=== PATIENT | male | born 1960 | race Caucasian/White ===

== ENCOUNTER 2022-06-26 22:59 | Emergency (ER) | payer MEDICARE, OTHER ==
[~2022-06-26] VITALS: Ht 182.9 cm; Wt 65.9 kg
[2022-06-26 23:59] LABS: EOSINOPHILS % (AUTO) 0.2 % (0-6); HEMOGLOBIN 14.6 g/dl (14.0-17.9); MEAN PLATELET VOLUME 7.8 FL (7.4-10.4)
[2022-06-27 00:02] LABS: BASOPHILS % (AUTO) 0.4 % (0-1); HEMATOCRIT 44.2 % (42.0-52.0); LYMPHOCYTES % (AUTO) 10.9 % (21-51); MEAN CORPUSCULAR HEMOGLOBIN 33.2 PG (27.0-31.0); MEAN CORPUSCULAR VOLUME 100.8 FL (78-98); MONOCYTES # (AUTO) 1.5 X10'3 (0-0.9); MONOCYTES % (AUTO) 15.5 % (2-12); PLATELET COUNT 243 X10'3 (140-440); RED BLOOD COUNT 4.39 X10'6 (4.70-6.10); RED CELL DISTRIBUTION WIDTH 15.8 % (11.5-14.5); WHITE BLOOD COUNT 9.6 X10'3 (4.5-11.0)
[2022-06-27 00:03] LABS: ALANINE AMINOTRANSFERASE 25 U/L (12-78); ALBUMIN 3.6 G/DL (3.4-5.0); ALBUMIN/GLOBULIN RATIO 0.9 (1.1-1.5); ALKALINE PHOSPHATASE 96 IU/L (46-116); ANION GAP 11 (8-16); ASPARTATE AMINO TRANSFERASE 26 U/L (10-37); BILIRUBIN,TOTAL 0.6 MG/DL (0.1-1.0); BLOOD UREA NITROGEN 19 MG/DL (7-18); BUN/CREATININE RATIO 13.3 (5.4-32.0); CALCIUM 9.2 MG/DL (8.5-10.1); CHLORIDE 99 MMOL/L (99-107); CREATININE 1.43 MG/DL (0.60-1.10); GLUCOSE 120 MG/DL (70-104); POTASSIUM 4.4 MMOL/L (3.5-5.1); SODIUM 134 MMOL/L (135-145); TOTAL PROTEIN 7.4 G/DL (6.4-8.2); eGFR 50 ML/MIN
[2022-06-27 00:27] LABS: LIPASE 5670 U/L (73-393)
[2022-06-27] MEDS ORDERED: normal saline 1000ML IV soln IVB ONE (05:20)
[2022-06-27] MEDS ORDERED: morphine 4 MG/ML inj SYRINge IV ONE (05:20)
[2022-06-27] MEDS ORDERED: ondansetron/PF 4mg/2ml inj IV ONE (05:20)
[2022-06-27] MEDS ORDERED: OXYC-658 PO (06:17)
[2022-06-27] MEDS ORDERED: ONDA4TAB12 PO (06:17)
[2022-06-27 06:49] VITALS: BP 168/109
== END 2022-06-27 06:58 | disposition home or self-care (01) ==
LOC: ER 23:00
DX: K85.20 Alcohol induced acute pancreatitis without necrosis or infection (principal); Z79.899 Other long term (current) drug therapy
CPT/HCPCS: 80053; 83690; 84484; 85025; 96361; 96374; 96375; 99284; J2270; J2405; J7030

== ENCOUNTER 2022-07-21 16:27 | Emergency (ER) | payer MEDICARE, OTHER ==
[~2022-07-21 16:27] MED LIST: ONDA4TAB12 PO; OXYC-658 PO
== END 2022-07-21 18:41 | disposition left against medical advice (07) ==
LOC: ER 16:27
DX: K85.90 Acute pancreatitis without necrosis or infection, unspecified (principal); Z53.21 Procedure and treatment not carried out due to patient leaving prior to being seen by health care provider

== ENCOUNTER 2022-08-01 10:55 | Emergency (ER) | payer MEDICARE, OTHER ==
[~2022-08-01] VITALS: Ht 182.9 cm; Wt 65.9 kg
[~2022-08-01 10:55] MED LIST changes: -OXYC-658 PO
[2022-08-01] MEDS ORDERED: ketorolac trometh. 30mg/ml inj. IV ONE (11:35)
[2022-08-01] MEDS ORDERED: famotidine/PF 10 mg/ml inj IV ONE (11:35)
[2022-08-01] MEDS ORDERED: ondansetron/PF 4mg/2ml inj IV ONE (11:35)
[2022-08-01] MEDS ORDERED: morphine 4 MG/ML inj SYRINge IV PRN (11:52)
[2022-08-01 12:02] LABS: CLARITY,URINE SLIGHTLY CLOUDY (Clear); COLOR,URINE YELLOW (Yellow); GLUCOSE, URINE NEGATIVE (Neg); KETONES,URINE TRACE mg/dl (Neg); LEUKOCYTE ESTERASE ,URINE NEGATIVE (Neg); NITRITES, URINE NEGATIVE (Neg); OCCULT BLOOD,URINE TRACE-INTACT (Neg); PROTEIN,URINE TRACE mg/dl (Neg); UA COLLECTION TYPE STRAIGHT CATH; UROBILINOGEN,URINE 0.2 E.U/dL (0.2-1.0)
[2022-08-01 12:04] LABS: BASOPHILS # (AUTO) 0.1 X10'3 (0-0.2); BASOPHILS % (AUTO) 0.4 % (0-1); EOSINOPHILS % (AUTO) 0.3 % (0-6); HEMATOCRIT 40.3 % (42.0-52.0); HEMOGLOBIN 12.9 g/dl (14.0-17.9); LYMPHOCYTES # (AUTO) 1.4 X10'3 (1.1-4.8); LYMPHOCYTES % (AUTO) 9.5 % (21-51); MEAN CORPUSCULAR HEMOGLOBIN 31.8 PG (27.0-31.0); MEAN CORPUSCULAR HGB CONC 32.1 g/dL (33.0-36.5); MEAN PLATELET VOLUME 7.7 FL (7.4-10.4); MONOCYTES # (AUTO) 1.1 X10'3 (0-0.9); MONOCYTES % (AUTO) 7.7 % (2-12); NEUTROPHILS # (AUTO) 12.1 X10'3 (1.8-7.7); NEUTROPHILS % (AUTO) 82.1 % (42-75); PLATELET COUNT 440 X10'3 (140-440); RED BLOOD COUNT 4.07 X10'6 (4.70-6.10); RED CELL DISTRIBUTION WIDTH 16.2 % (11.5-14.5); WHITE BLOOD COUNT 14.8 X10'3 (4.5-11.0)
[2022-08-01 12:10] LABS: FINE GRANULAR CAST 0-3 /LPF (NEGATIVE); SQUAMOUS EPITHELIAL CELL,UR FEW /LPF (FEW)
[2022-08-01 12:14] LABS: ALANINE AMINOTRANSFERASE 20 U/L (12-78); ALBUMIN 3.9 G/DL (3.4-5.0); ALBUMIN/GLOBULIN RATIO 1.2 (1.1-1.5); ALKALINE PHOSPHATASE 89 IU/L (46-116); ANION GAP 14 (8-16); ASPARTATE AMINO TRANSFERASE 10 U/L (10-37); BILIRUBIN,TOTAL 0.4 MG/DL (0.1-1.0); BLOOD UREA NITROGEN 23 MG/DL (7-18); BUN/CREATININE RATIO 15.3 (5.4-32.0); CALCIUM 9.1 MG/DL (8.5-10.1); CHLORIDE 105 MMOL/L (99-107); GLUCOSE 101 MG/DL (70-104); POTASSIUM 3.6 MMOL/L (3.5-5.1); SODIUM 136 MMOL/L (135-145); TOTAL CARBON DIOXIDE 16.7 MMOL/L (24-32); TOTAL PROTEIN 7.1 G/DL (6.4-8.2); eGFR 47 ML/MIN
[2022-08-01 12:21] LABS: AMORPHOUS PHOSPHATES 1+
[2022-08-01 12:22] LABS: BACTERIA,URINE NONE SEEN /HPF (Neg); RBC,URINE NONE SEEN /HPF (0-2); WBC,URINE 0-4 /HPF (0-4)
[2022-08-01 12:27] LABS: LIPASE 5192 U/L (73-393)
[2022-08-01] MEDS ORDERED: ONDA4TAB12 PO (13:31)
[2022-08-01] MEDS ORDERED: OXYC-145 PO (13:31)
[2022-08-01 13:36] VITALS: BP 123/81
[2022-08-04] MEDS ORDERED: SODI650T29 PO (14:42)
[2022-08-04] MEDS ORDERED: LIPA1CAP35 PO (14:42)
[2022-08-04] MEDS ORDERED: CHOL5POW PO (14:42)
== END 2022-08-01 13:50 | disposition home or self-care (01) ==
LOC: ER 10:56
DX: K86.1 Other chronic pancreatitis (principal)
CPT/HCPCS: 36415; 74176; 80053; 81001; 83690; 85025; 96374; 96375; 99284; J1885; J2270; J2405; J3490; J7030

== ENCOUNTER 2022-08-28 16:19 | Emergency (ER) | payer MEDICARE, OTHER ==
[~2022-08-28] VITALS: Ht 182.9 cm; Wt 61.4 kg
[~2022-08-28 16:19] MED LIST changes: +CHOL5POW PO; +FOLI1TAB27 PO; +LEVO-65 PO; +LIPA1CAP35 PO; +MULT-25 PO; -ONDA4TAB12 PO; +thiamine tablet PO
[2022-08-28] MEDS ORDERED: ondansetron/PF 4mg/2ml inj IV ONE (16:55)
[2022-08-28] MEDS ORDERED: normal saline 1000ml 1,000 ML IV ONE ×2 (16:55→18:10)
[2022-08-28] MEDS: morphine 4 MG/ML inj SYRINge IV PRN ×2 (17:03→18:02)
[2022-08-28 17:32] LABS: WHITE BLOOD COUNT 7.2 X10'3 (4.5-11.0)
[2022-08-28 17:33] LABS: BASOPHILS # (AUTO) 0.1 X10'3 (0-0.2); BASOPHILS % (AUTO) 0.9 % (0-1); EOSINOPHILS # (AUTO) 0.1 X10'3 (0-0.9); HEMATOCRIT 37.4 % (42.0-52.0); HEMOGLOBIN 12.2 g/dl (14.0-17.9); LYMPHOCYTES # (AUTO) 1.9 X10'3 (1.1-4.8); LYMPHOCYTES % (AUTO) 26.3 % (21-51); MEAN CORPUSCULAR HEMOGLOBIN 31.3 PG (27.0-31.0); MEAN CORPUSCULAR HGB CONC 32.5 g/dL (33.0-36.5); MEAN CORPUSCULAR VOLUME 96.3 FL (78-98); MEAN PLATELET VOLUME 8.9 FL (7.4-10.4); MONOCYTES # (AUTO) 0.7 X10'3 (0-0.9); MONOCYTES % (AUTO) 9.9 % (2-12); NEUTROPHILS # (AUTO) 4.5 X10'3 (1.8-7.7); NEUTROPHILS % (AUTO) 61.9 % (42-75); PLATELET COUNT 301 X10'3 (140-440); RED BLOOD COUNT 3.88 X10'6 (4.70-6.10)
[2022-08-28 17:37] LABS: ALANINE AMINOTRANSFERASE 17 U/L (12-78); ALBUMIN 3.2 G/DL (3.4-5.0); ALKALINE PHOSPHATASE 118 IU/L (46-116); ANION GAP 10 (8-16); ASPARTATE AMINO TRANSFERASE 15 U/L (10-37); BILIRUBIN,TOTAL 0.3 MG/DL (0.1-1.0); BLOOD UREA NITROGEN 24 MG/DL (7-18); BUN/CREATININE RATIO 16.8 (5.4-32.0); CALCIUM 8.9 MG/DL (8.5-10.1); CHLORIDE 107 MMOL/L (99-107); CREATININE 1.43 MG/DL (0.60-1.10); GLUCOSE 128 MG/DL (70-104); POTASSIUM 4.3 MMOL/L (3.5-5.1); SODIUM 132 MMOL/L (135-145); TOTAL CARBON DIOXIDE 15.3 MMOL/L (24-32); TOTAL PROTEIN 6.4 G/DL (6.4-8.2); eGFR 50 ML/MIN
[2022-08-28 17:55] LABS: LIPASE 4037 U/L (73-393)
--- NOTE | 2022-08-28 17:57 | NUR ---
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
[2022-08-28] MEDS ORDERED: OXYC-150 PO ×3 (18:09→18:19)
[2022-08-28] MEDS ORDERED: oxyCODONE/APAP 10/325mg tablet PO ONE (18:10)
[2022-08-28 18:39] VITALS: BP 107/74
== END 2022-08-28 19:07 | disposition home or self-care (01) ==
LOC: ER 16:19
DX: K86.1 Other chronic pancreatitis (principal); K85.90 Acute pancreatitis without necrosis or infection, unspecified
CPT/HCPCS: 80053; 83690; 85025; 96361; 96374; 96375; 96376; 99284; J2270; J2405; J7030

== ENCOUNTER 2023-05-20 12:57 | Emergency (ER) | payer MEDICARE, OTHER ==
[~2023-05-20] VITALS: Ht 182.9 cm; Wt 53.0 kg
[~2023-05-20 12:57] MED LIST changes: -LEVO-65 PO; +OXYC-150 PO
[2023-05-20 13:12] VITALS: BP 119/86; PULSE 103; O2SAT 99
[2023-05-20] MEDS ORDERED: ondansetron/PF 4mg/2ml inj IV ONE (14:45)
[2023-05-20] MEDS ORDERED: morphine 4 MG/ML inj SYRINge IV PRN (14:45)
[2023-05-20] MEDS ORDERED: normal saline 1000ML IV soln IVB ONE (14:45)
[2023-05-20 14:49] LABS: BASOPHILS % (AUTO) 0.3 % (0-1); EOSINOPHILS % (AUTO) 0.3 % (0-6); HEMATOCRIT 45.4 % (42.0-52.0); HEMOGLOBIN 14.4 g/dl (14.0-17.9); LYMPHOCYTES # (AUTO) 1.8 X10'3 (1.1-4.8); LYMPHOCYTES % (AUTO) 22.2 % (21-51); MEAN CORPUSCULAR HEMOGLOBIN 31.4 PG (27.0-31.0); MEAN CORPUSCULAR HGB CONC 31.8 g/dL (33.0-36.5); MEAN CORPUSCULAR VOLUME 98.8 FL (78-98); MONOCYTES # (AUTO) 0.8 X10'3 (0-0.9); MONOCYTES % (AUTO) 10.1 % (2-12); NEUTROPHILS # (AUTO) 5.4 X10'3 (1.8-7.7); NEUTROPHILS % (AUTO) 67.1 % (42-75); PLATELET COUNT 267 X10'3 (140-440); RED BLOOD COUNT 4.59 X10'6 (4.70-6.10)
[2023-05-20 15:03] LABS: CLARITY,URINE CLOUDY (Clear); COLOR,URINE YELLOW (Yellow); GLUCOSE, URINE NEGATIVE (Neg); KETONES,URINE NEGATIVE (Neg); LEUKOCYTE ESTERASE ,URINE TRACE (Neg); NITRITES, URINE NEGATIVE (Neg); OCCULT BLOOD,URINE SMALL (Neg); PH,URINE 7.5 (4.8-8.0); PROTEIN,URINE 30 mg/dl (Neg); UROBILINOGEN,URINE 0.2 E.U/dL (0.2-1.0)
[2023-05-20 15:05] LABS: ALANINE AMINOTRANSFERASE 83 U/L (12-78); ALBUMIN 4.3 G/DL (3.4-5.0); ALBUMIN/GLOBULIN RATIO 1.2 (1.1-1.5); ALKALINE PHOSPHATASE 167 IU/L (46-116); ANION GAP 12 (8-16); ASPARTATE AMINO TRANSFERASE 74 U/L (10-37); BILIRUBIN,TOTAL 0.4 MG/DL (0.1-1.0); BLOOD UREA NITROGEN 31 MG/DL (7-18); BUN/CREATININE RATIO 19.1 (10.0-20.0); CALCIUM 9.7 MG/DL (8.5-10.1); CHLORIDE 104 MMOL/L (99-107); CREATININE 1.62 MG/DL (0.60-1.10); GLUCOSE 115 MG/DL (70-104); SODIUM 134 MMOL/L (135-145); TOTAL PROTEIN 7.8 G/DL (6.4-8.2); eGFR 43 ML/MIN
[2023-05-20 15:06] LABS: UA COLLECTION TYPE STRAIGHT CATH
[2023-05-20 15:17] LABS: BACTERIA,URINE FEW /HPF (Neg)
[2023-05-20 15:18] LABS: AMORPHOUS PHOSPHATES 3+; MUCUS STRANDS MANY /LPF (Neg); SQUAMOUS EPITHELIAL CELL,UR NONE SEEN /LPF (FEW); WBC CLUMPS,URINE FEW /HPF (NEGATIVE)
[2023-05-20 15:20] LABS: LIPASE 2255 U/L (73-393)
[2023-05-20] MEDS ORDERED: morphine 10mg/ml inj. IV ONE (16:40)
[2023-05-20 17:10] VITALS: RESP 16
[2023-05-20] MEDS ORDERED: HYDR-3973 PO (17:41)
[2023-05-20] MEDS ORDERED: ONDA4TAB12 PO (17:41)
== END 2023-05-20 17:52 | disposition home or self-care (01) ==
LOC: ER 12:58
DX: K85.90 Acute pancreatitis without necrosis or infection, unspecified (principal); R22.9 Localized swelling, mass and lump, unspecified; Z79.899 Other long term (current) drug therapy
CPT/HCPCS: 36415; 80053; 81001; 83690; 85025; 87077; 87088; 87186; 96374; 96375; 96376; 99284; J2270; J2274; J2405; J7030

== ENCOUNTER 2023-06-22 12:16 | Inpatient (IN) | payer MEDICARE, OTHER ==
[~2023-06-22] VITALS: Ht 183.5 cm; Wt 50.4 kg
[~2023-06-22 12:16] MED LIST changes: +ONDA4TAB12 PO
[2023-06-22 14:38] LABS: BASOPHILS % (AUTO) 0.2 % (0-1); EOSINOPHILS % (AUTO) 0.2 % (0-6); HEMATOCRIT 42.2 % (42.0-52.0); HEMOGLOBIN 13.8 g/dl (14.0-17.9); LYMPHOCYTES # (AUTO) 2.1 X10'3 (1.1-4.8); LYMPHOCYTES % (AUTO) 15.2 % (21-51); MEAN CORPUSCULAR HEMOGLOBIN 31.4 PG (27.0-31.0); MEAN CORPUSCULAR HGB CONC 32.7 g/dL (33.0-36.5); MEAN PLATELET VOLUME 7.4 FL (7.4-10.4); MONOCYTES # (AUTO) 1.1 X10'3 (0-0.9); MONOCYTES % (AUTO) 7.7 % (2-12); NEUTROPHILS # (AUTO) 10.8 X10'3 (1.8-7.7); NEUTROPHILS % (AUTO) 76.7 % (42-75); PLATELET COUNT 510 X10'3 (140-440); RED CELL DISTRIBUTION WIDTH 17.3 % (11.5-14.5); WHITE BLOOD COUNT 14.1 X10'3 (4.5-11.0)
[2023-06-22 14:56] LABS: ALANINE AMINOTRANSFERASE 53 U/L (12-78); ALBUMIN 3.5 G/DL (3.4-5.0); ALBUMIN/GLOBULIN RATIO 0.9 (1.1-1.5); ALKALINE PHOSPHATASE 221 IU/L (46-116); ANION GAP 13 (8-16); ASPARTATE AMINO TRANSFERASE 51 U/L (10-37); BILIRUBIN,TOTAL 0.4 MG/DL (0.1-1.0); BLOOD UREA NITROGEN 37 MG/DL (7-18); BUN/CREATININE RATIO 25.2 (10.0-20.0); CALCIUM 9.5 MG/DL (8.5-10.1); CHLORIDE 106 MMOL/L (99-107); CREATININE 1.47 MG/DL (0.60-1.10); GLUCOSE 153 MG/DL (70-104); POTASSIUM 3.6 MMOL/L (3.5-5.1); SODIUM 136 MMOL/L (135-145); TOTAL CARBON DIOXIDE 17.5 MMOL/L (24-32); TOTAL PROTEIN 7.6 G/DL (6.4-8.2); eCRCL 37 ML/MIN; eGFR 48 ML/MIN
--- NOTE | 2023-06-22 15:40 | NUR ---
Pt here in er for abd pain states he did have an untreated uti last month and straight caths daily. Pt states pain radiating to back. 07/03 pain
[2023-06-22 16:35] LABS: BILIRUBIN,URINE NEGATIVE (Neg); CLARITY,URINE CLOUDY (Clear); COLOR,URINE YELLOW (Yellow); GLUCOSE, URINE NEGATIVE (Neg); KETONES,URINE NEGATIVE (Neg); LEUKOCYTE ESTERASE ,URINE MODERATE (Neg); NITRITES, URINE NEGATIVE (Neg); OCCULT BLOOD,URINE TRACE-INTACT (Neg); PROTEIN,URINE 30 mg/dl (Neg); UROBILINOGEN,URINE 0.2 E.U/dL (0.2-1.0)
[2023-06-22 17:05] LABS: UA COLLECTION TYPE NON-SPECIFIED
[2023-06-22 17:08] LABS: BACTERIA,URINE 4+ /HPF (Neg); SQUAMOUS EPITHELIAL CELL,UR FEW /LPF (FEW); WBC,URINE TNTC /HPF (0-4)
[2023-06-22 17:09] LABS: MUCUS STRANDS MODERATE /LPF (Neg); WBC CLUMPS,URINE FEW /HPF (NEGATIVE); YEAST FEW /HPF (NEGATIVE)
[2023-06-22] MEDS ORDERED: HYDROmorphone 1 mg/ml syringe IV ONE ×2 (17:30→23:50)
[2023-06-22] MEDS ORDERED: ondansetron/PF 4mg/2ml inj IV ONE (17:30)
[2023-06-22 19:17] LABS: LIPASE 4142 U/L (73-393)
--- NOTE | 2023-06-22 20:14 | NUR ---
Patient resting in bed with eyes closed. Pt in no acute distress. Respirations are even and unlabored. Pt denies any needs at this time.
--- NOTE | 2023-06-22 22:15 | NUR ---
Patient resting in bed with eyes closed in no acute distress. Respirations are even and unlabored. Patient rates pain as 5/10 but comfortable. Pt denies any needs at time.
[2023-06-23] MEDS ORDERED: iohexol 300mg/ml 100ml inj. ONE (00:21)
--- NOTE | 2023-06-23 00:25 | NUR ---
Alessia guy in [facility] - 06/23/23 at 0027 by DEBORA VIOLETTE Matos [phone] OF PATIENT CODE WORD FOR TO GET MEDICAL INFO IS "CRIB."
--- NOTE | 2023-06-23 00:27 | NUR ---
WRONG PATIENT FOR CONTACT
[2023-06-23] MEDS ORDERED: acetaminophen 325mg tablet PO PRN (00:40)
[2023-06-23] MEDS ORDERED: ondansetron/PF 4mg/2ml inj IV PRN (00:40)
[2023-06-23] MEDS ORDERED: potassium Cl 40MEQ/1/2NS 520ml 520 ML IV PRN (00:40)
[2023-06-23] MEDS ORDERED: magnesium 2GM in 50ml NS 50 ML IV PRN (00:40)
[2023-06-23] MEDS ORDERED: morphine 2 MG/ML inj. syringe IV PRN (00:40)
[2023-06-23] MEDS ORDERED: potassium Cl 20 mEq SR tablet PO PRN (00:40)
[2023-06-23] MEDS ORDERED: magnesium 4gm in 100ml NS 100 ML IV PRN (00:40)
[2023-06-23] MEDS ORDERED: magnesium Cl slow-release 64mg tablet PO PRN (00:40)
[2023-06-23] MEDS: normal saline 1000ml 1,000 ML IV SCH ×3 (02:10→19:49)
--- NOTE | 2023-06-23 02:27 | NUR ---
Patient resting in bed with eyes closed. Pt in no acute distress. Respirations are even and unlabored. Pt denies any needs at this time.
--- NOTE | 2023-06-23 03:58 | NUR ---
Patient resting in bed with eyes closed. Patient in no acute distress. Respirations even and unlabored. Pt denied any needs at this time.
[2023-06-23 07:54] LABS: POTASSIUM 3.9 MMOL/L (3.5-5.1)
[2023-06-23] MEDS: morphine 2 MG/ML inj. syringe IV PRN ×3 (07:56→22:19)
[2023-06-23] MEDS: K and/or MAG REPLACEMENT MC SCH ×2 (08:00→22:27)
--- NOTE | 2023-06-23 08:27 | NUR ---
Attempted to call reportx3 this morning, but unsuccessful. Will transfer pt upstairs via wheelchair and give bedside report to RN.
[2023-06-23] MEDS: heparin, porcine 5000 units/ml vial SQ SCH ×2 (09:02→19:53)
[2023-06-23] MEDS: CefTRIAXone/D5W-Rocephin 1gm 50 ML IV SCH (09:57)
[2023-06-23 10:00] VITALS: BP 113/53; PULSE 82; RESP 16; TEMP 98.2; O2SAT 92
[2023-06-23] MEDS ORDERED: dextrose 50%-water 50ml dispensing syringe IV PRN ×2 (10:05)
[2023-06-23] MEDS ORDERED: insulin Lispro (HumaLOG) vial - multi-dose SQ SCH (10:05)
[2023-06-23] MEDS ORDERED: DEXTROSE 15 GM of carb/4 tabs (each vial/BOTTLE has 4 tablets) PO PRN ×2 (10:05)
[2023-06-23] MEDS ORDERED: MESSAGE TO PHARMACY PO ONE (10:05)
[2023-06-23] MEDS ORDERED: glucagon, human recombinant 1mg kit SUBCUT PRN (10:05)
[2023-06-23 11:45] LABS: HEMOGLOBIN A1C 5.4 % (4.5-6.2)
[2023-06-23] MEDS ORDERED: CHOL378P13 PO (13:15)
[2023-06-23] MEDS ORDERED: LIPA1CAP35 PO (13:15)
[2023-06-23] MEDS ORDERED: SODI650T29 PO (13:16)
[2023-06-23 18:00] VITALS: BP 108/70; PULSE 66; RESP 16; TEMP 98.2; O2SAT 97
--- NOTE | 2023-06-23 18:30 | NUR ---
Patient in room ORTHO 4024. I have received report from JAYDEN ROJAS and had the opportunity to ask questions and assume patient care.
[2023-06-23 20:00] VITALS: RESP 16; O2SAT 97
[2023-06-23 22:00] VITALS: BP 112/69; PULSE 77; RESP 16; TEMP 98.3; O2SAT 99
[2023-06-23] MEDS: insulin glargine (Lantus) pen - multi-dose SQ SCH (22:28)
[2023-06-23] MEDS: dextrose 5%-normal saline 1,000 ML IV SCH (23:11)
[2023-06-24 06:00] VITALS: BP 96/63; PULSE 77; RESP 14; TEMP 98.4; O2SAT 95
--- NOTE | 2023-06-24 06:27 | NUR ---
Problems reprioritized. Patient report given, questions answered & plan of care reviewed with SMITHA ROJAS.
--- NOTE | 2023-06-24 07:03 | NUR ---
Patient in room ORTHO 4024. I have received report from Leida Casarez RN and had the opportunity to ask questions and assume patient care.
[2023-06-24] MEDS: heparin, porcine 5000 units/ml vial SQ SCH ×2 (07:50→20:53)
[2023-06-24] MEDS: K and/or MAG REPLACEMENT MC SCH ×2 (07:53→20:00)
[2023-06-24 08:00] VITALS: RESP 15; O2SAT 100
[2023-06-24] MEDS: morphine 2 MG/ML inj. syringe IV PRN ×3 (08:04→22:35)
[2023-06-24] MEDS: CefTRIAXone/D5W-Rocephin 1gm 50 ML IV SCH (08:04)
[2023-06-24 08:13] LABS: BASOPHILS # (AUTO) 0.1 X10'3 (0-0.2); BASOPHILS % (AUTO) 0.7 % (0-1); EOSINOPHILS # (AUTO) 0.1 X10'3 (0-0.9); HEMATOCRIT 37.3 % (42.0-52.0); HEMOGLOBIN 11.9 g/dl (14.0-17.9); LYMPHOCYTES # (AUTO) 1.9 X10'3 (1.1-4.8); LYMPHOCYTES % (AUTO) 22.2 % (21-51); MEAN CORPUSCULAR HEMOGLOBIN 31.2 PG (27.0-31.0); MEAN CORPUSCULAR HGB CONC 31.8 g/dL (33.0-36.5); MEAN CORPUSCULAR VOLUME 98.2 FL (78-98); MEAN PLATELET VOLUME 8.2 FL (7.4-10.4); MONOCYTES % (AUTO) 11.7 % (2-12); NEUTROPHILS # (AUTO) 5.6 X10'3 (1.8-7.7); NEUTROPHILS % (AUTO) 64.4 % (42-75); PLATELET COUNT 375 X10'3 (140-440); RED CELL DISTRIBUTION WIDTH 17.6 % (11.5-14.5); WHITE BLOOD COUNT 8.7 X10'3 (4.5-11.0)
[2023-06-24 09:03] LABS: ALANINE AMINOTRANSFERASE 35 U/L (12-78); ALBUMIN 2.7 G/DL (3.4-5.0); ALBUMIN/GLOBULIN RATIO 0.8 (1.1-1.5); ALKALINE PHOSPHATASE 180 IU/L (46-116); ANION GAP 13 (8-16); ASPARTATE AMINO TRANSFERASE 13 U/L (10-37); BILIRUBIN,TOTAL 0.3 MG/DL (0.1-1.0); BLOOD UREA NITROGEN 32 MG/DL (7-18); BUN/CREATININE RATIO 25.2 (10.0-20.0); CALCIUM 8.8 MG/DL (8.5-10.1); CHLORIDE 113 MMOL/L (99-107); CREATININE 1.27 MG/DL (0.60-1.10); GLUCOSE 117 MG/DL (70-104); LIPASE 493 U/L (73-393); MAGNESIUM 1.9 MG/DL (1.5-2.4); POTASSIUM 3.4 MMOL/L (3.5-5.1); SODIUM 138 MMOL/L (135-145); TOTAL PROTEIN 5.9 G/DL (6.4-8.2); eCRCL 42 ML/MIN; eGFR 57 ML/MIN
[2023-06-24 09:16] LABS: TOTAL CARBON DIOXIDE 12.1 MMOL/L (24-32)
--- NOTE | 2023-06-24 09:21 | NUR ---
Notified primary nurseMine of critical CO2 value.
[2023-06-24] MEDS: potassium Cl 20 mEq SR tablet PO PRN ×3 (09:24→21:30)
[2023-06-24] MEDS: dextrose 5%-normal saline 1,000 ML IV SCH (09:28)
[2023-06-24 10:00] VITALS: BP 106/64; PULSE 83; RESP 15; TEMP 97.9; O2SAT 100
[2023-06-24] MEDS ORDERED: SODIUM BICARB 150mEq/D5W 1L 1,000 ML IV SCH (10:15)
[2023-06-24] MEDS: sodium bicarbonate (8.4%) inj. 150 MEQ in dextrose 5%-water 1,000 ML IV SCH (12:40)
--- NOTE | 2023-06-24 14:01 | NUR ---
Noted pt with a low BMI of 15.0 using chair scaled weight of 50.4 kg. Attempted visit with pt at bedside however pt not in room. Pt denied wt loss or decreased appetite/PO intake per malnutrition risk screen with RN. No documented decrease in muscle strength or edema. Pt documented with 100% PO intake of first meal on clear liquid diet, pending documentation of PO intake on full liquid diet. Pt currently lacks a minimum of two criteria for malnutrition though will continue to monitor s/s of malnutrition and attempt visit with pt at another time. Addendum: 06/24/23 at [address] Amended: Links added.
--- NOTE | 2023-06-24 15:04 | NUR ---
DIRECTOR TOXICOLOGY documentation: I have reviewed and agree with all interventions, assessments performed and documented by Mine Evans LVN.
[2023-06-24 18:00] VITALS: BP 101/65; PULSE 76; RESP 16; TEMP 98.4; O2SAT 96
--- NOTE | 2023-06-24 18:31 | NUR ---
Problems reprioritized. Patient report given, questions answered & plan of care reviewed with NATHAN Cortés.
--- NOTE | 2023-06-24 18:54 | NUR ---
Patient in room ORTHO 4010. I have received report from CRYSTAL Blount and had the opportunity to ask questions and assume patient care.
[2023-06-24 20:00] VITALS: RESP 16; O2SAT 100
[2023-06-24] MEDS: insulin glargine (Lantus) pen - multi-dose SQ SCH (21:00)
[2023-06-24 22:00] VITALS: BP 91/47; PULSE 85; RESP 16; TEMP 97.3; O2SAT 100
[2023-06-25] MEDS: sodium bicarbonate (8.4%) inj. 150 MEQ in dextrose 5%-water 1,000 ML IV SCH ×2 (01:16→09:30)
[2023-06-25 06:00] VITALS: BP 96/56; PULSE 77; RESP 16; TEMP 97.8; O2SAT 98
[2023-06-25 06:13] LABS: ALANINE AMINOTRANSFERASE 28 U/L (12-78); ALBUMIN 2.6 G/DL (3.4-5.0); ALBUMIN/GLOBULIN RATIO 0.8 (1.1-1.5); ALKALINE PHOSPHATASE 151 IU/L (46-116); ANION GAP 12 (8-16); ASPARTATE AMINO TRANSFERASE 9 U/L (10-37); BILIRUBIN,TOTAL 0.3 MG/DL (0.1-1.0); BLOOD UREA NITROGEN 24 MG/DL (7-18); BUN/CREATININE RATIO 21.8 (10.0-20.0); CALCIUM 8.2 MG/DL (8.5-10.1); CHLORIDE 108 MMOL/L (99-107); GLUCOSE 121 MG/DL (70-104); LIPASE 306 U/L (73-393); MAGNESIUM 1.5 MG/DL (1.5-2.4); POTASSIUM 3.5 MMOL/L (3.5-5.1); SODIUM 138 MMOL/L (135-145); TOTAL CARBON DIOXIDE 18.4 MMOL/L (24-32); TOTAL PROTEIN 5.7 G/DL (6.4-8.2); eCRCL 49 ML/MIN; eGFR 68 ML/MIN
[2023-06-25 06:36] LABS: BASOPHILS # (AUTO) 0.1 X10'3 (0-0.2); BASOPHILS % (AUTO) 0.5 % (0-1); EOSINOPHILS # (AUTO) 0.1 X10'3 (0-0.9); EOSINOPHILS % (AUTO) 1.1 % (0-6); HEMATOCRIT 35.4 % (42.0-52.0); HEMOGLOBIN 11.5 g/dl (14.0-17.9); LYMPHOCYTES # (AUTO) 1.8 X10'3 (1.1-4.8); LYMPHOCYTES % (AUTO) 18.2 % (21-51); MEAN CORPUSCULAR HEMOGLOBIN 31.2 PG (27.0-31.0); MEAN CORPUSCULAR HGB CONC 32.5 g/dL (33.0-36.5); MEAN CORPUSCULAR VOLUME 96.2 FL (78-98); MEAN PLATELET VOLUME 8.6 FL (7.4-10.4); MONOCYTES # (AUTO) 1.2 X10'3 (0-0.9); MONOCYTES % (AUTO) 12.5 % (2-12); NEUTROPHILS # (AUTO) 6.7 X10'3 (1.8-7.7); NEUTROPHILS % (AUTO) 67.7 % (42-75); PLATELET COUNT 376 X10'3 (140-440); RED BLOOD COUNT 3.68 X10'6 (4.70-6.10); RED CELL DISTRIBUTION WIDTH 16.9 % (11.5-14.5)
--- NOTE | 2023-06-25 06:37 | NUR ---
Problems reprioritized. Patient report given, questions answered & plan of care reviewed with adolfo Smiley.
[2023-06-25] MEDS: heparin, porcine 5000 units/ml vial SQ SCH (07:24)
[2023-06-25] MEDS: CefTRIAXone/D5W-Rocephin 1gm 50 ML IV SCH (07:59)
[2023-06-25 08:00] VITALS: RESP 16; O2SAT 98
[2023-06-25] MEDS: K and/or MAG REPLACEMENT MC SCH (08:00)
[2023-06-25 10:00] VITALS: BP 91/48; PULSE 81; RESP 15; TEMP 98.4; O2SAT 99
--- NOTE | 2023-06-25 13:04 | NUR ---
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 Current wt likley not accurate given pt report of ABW. Pt endorses a good appetite stating he is "starving". Currently averaging 83% PO intake on liquid diet. Pt appears thin though not cachectic. Pt currently lacks a minimum of two criteria for malnutrition. Pt denies food allergies, difficulty chewing/swallowing, or constipation/diarrhea. Per pt LBM was last night. Pt denies any questions or preferences at this time. RD contact information provided and pt encouraged to reach out if needed. Will continue to follow. Addendum: 06/25/23 at [address] Amended: Links added.
[2023-06-25] MEDS ORDERED: sodium bicarbonate 650mg tablet PO SCH (13:05)
[2023-06-25] MEDS ORDERED: LACT1CAP55 PO (14:35)
[2023-06-25] MEDS ORDERED: THIA50TA10 PO (14:35)
[2023-06-25] MEDS ORDERED: HYDR-3965 PO (14:35)
[2023-06-25] MEDS ORDERED: CEFD300C3 PO (14:35)
[2023-06-25] MEDS ORDERED: FOLI0.4T6 PO (14:35)
[2023-06-25] MEDS ORDERED: MULT-1085 PO (14:35)
[2023-06-25] MEDS ORDERED: SODI650T29 PO (14:35)
--- NOTE | 2023-06-25 14:36 | NUR ---
CLASSROOM TECHNOLOGY TECHNICIAN documentation: I have reviewed and agree with all interventions, assessments performed and documented by Suman Maxwell LVN .
--- NOTE | 2023-06-25 16:01 | NUR ---
Pt stable for discharge. IV discontinued prior to discharge. Patient signed all d/c paperwork. Patient left with all belongings. Spouse was present at the time of discharge and patient was wheeled down to lobby with the assistance of one staff member. Patient left in a private vehicle with spouse to go home. D/c @ [id number].
== END 2023-06-25 15:50 | disposition home or self-care (01) | DRG 438 ==
LOC: ER 12:19 → ED HOLD 06-23 00:41 → ORTHO 4S 06-23 08:55
PROVIDERS: ADMIT Internal Medicine; ATTEND Family Medicine
DX: K85.90 Acute pancreatitis without necrosis or infection, unspecified (principal); N17.0 Acute kidney failure with tubular necrosis; N39.0 Urinary tract infection, site not specified; D64.9 Anemia, unspecified; K86.1 Other chronic pancreatitis; Z85.51 Personal history of malignant neoplasm of bladder; Z79.899 Other long term (current) drug therapy; Z92.21 Personal history of antineoplastic chemotherapy; B96.1 Klebsiella pneumoniae [K. pneumoniae] as the cause of diseases classified elsewhere
CPT/HCPCS: 36415; 74177; 80053; 81001; 82948; 83036; 83690; 83735; 84132; 85025; 86301; 87077; 87088; 87186; 96374; 96375; 96376; 99285; G0378; J0696; J1170; J1644; J1815; J2270; J2405; J3490; J7030; J7042; J7070; Q9967

== ENCOUNTER 2023-10-26 13:07 | Emergency (ER) | payer MEDICARE, OTHER ==
[~2023-10-26] VITALS: Ht 182.9 cm; Wt 61.4 kg
[~2023-10-26 13:07] MED LIST changes: +CHOL378P13 PO; -CHOL5POW PO; -FOLI1TAB27 PO; +LACT1CAP55 PO; +MULT-227 PO; -MULT-25 PO; -OXYC-150 PO; +SODI650T29 PO; +THIA50TA10 PO; -thiamine tablet PO
[2023-10-26 14:19] LABS: BASOPHILS % (AUTO) 0.5 % (0-1); EOSINOPHILS # (AUTO) 0.1 X10'3 (0-0.9); EOSINOPHILS % (AUTO) 0.6 % (0-6); HEMATOCRIT 42.6 % (42.0-52.0); LYMPHOCYTES # (AUTO) 1.5 X10'3 (1.1-4.8); LYMPHOCYTES % (AUTO) 15.8 % (21-51); MEAN CORPUSCULAR HEMOGLOBIN 32.1 PG (27.0-31.0); MEAN CORPUSCULAR VOLUME 97.3 FL (78-98); MEAN PLATELET VOLUME 8.7 FL (7.4-10.4); MONOCYTES # (AUTO) 0.9 X10'3 (0-0.9); MONOCYTES % (AUTO) 9.5 % (2-12); NEUTROPHILS # (AUTO) 7.1 X10'3 (1.8-7.7); NEUTROPHILS % (AUTO) 73.6 % (42-75); PLATELET COUNT 265 X10'3 (140-440); RED BLOOD COUNT 4.37 X10'6 (4.70-6.10); RED CELL DISTRIBUTION WIDTH 16.6 % (11.5-14.5); WHITE BLOOD COUNT 9.6 X10'3 (4.5-11.0)
[2023-10-26 14:33] LABS: ALANINE AMINOTRANSFERASE 74 U/L (12-78); ALBUMIN 3.8 G/DL (3.4-5.0); ALKALINE PHOSPHATASE 155 IU/L (46-116); ANION GAP 14 (8-16); ASPARTATE AMINO TRANSFERASE 11 U/L (10-37); BILIRUBIN,TOTAL 0.4 MG/DL (0.1-1.0); BLOOD UREA NITROGEN 55 MG/DL (7-18); BUN/CREATININE RATIO 26.6 (10.0-20.0); CALCIUM 8.5 MG/DL (8.5-10.1); CHLORIDE 103 MMOL/L (99-107); CREATININE 2.07 MG/DL (0.60-1.10); GLUCOSE 105 MG/DL (70-104); POTASSIUM 3.2 MMOL/L (3.5-5.1); SODIUM 133 MMOL/L (135-145); TOTAL CARBON DIOXIDE 16.3 MMOL/L (24-32); TOTAL PROTEIN 7.7 G/DL (6.4-8.2); eCRCL 32 ML/MIN; eGFR 33 ML/MIN
[2023-10-26 14:41] LABS: PRO BRAIN NATRIURETIC PEPTIDE 103 PG/ML (0-125)
[2023-10-26 21:32] VITALS: BP 105/76; PULSE 89; TEMP 99; O2SAT 98
[2023-10-26] MEDS ORDERED: ketorolac tromethamine 15mg/ml inj. IM ONE (21:45)
[2023-10-26 21:54] VITALS: RESP 18
[2023-10-26 22:13] LABS: LIPASE > 375 U/L (16-77)
[2023-10-26] MEDS ORDERED: oxyCODONE/APAP 5-325mg tablet PO ONE (22:35)
[2023-10-26] MEDS ORDERED: OXYC-145 PO (22:39)
[2023-10-26] MEDS ORDERED: potassium Cl 20 mEq SR tablet PO STA (22:41)
== END 2023-10-26 23:12 | disposition home or self-care (01) ==
LOC: ER 13:08
DX: R07.89 Other chest pain (principal); R11.10 Vomiting, unspecified; N18.9 Chronic kidney disease, unspecified; Z72.89 Other problems related to lifestyle; Z85.9 Personal history of malignant neoplasm, unspecified; Z79.899 Other long term (current) drug therapy; Z87.19 Personal history of other diseases of the digestive system
CPT/HCPCS: 36415; 71100; 80053; 83605; 83690; 83880; 85025; 87040; 96372; 99284; J1885

== ENCOUNTER 2023-11-03 20:05 | Emergency (ER) | payer MEDICARE, OTHER ==
[~2023-11-03] VITALS: Ht 182.9 cm; Wt 63.6 kg
[~2023-11-03 20:05] MED LIST changes: +OXYC-145 PO
[2023-11-03 20:17] VITALS: TEMP 98
[2023-11-03 21:01] LABS: ALANINE AMINOTRANSFERASE 30 U/L (12-78); ALBUMIN 3.1 G/DL (3.4-5.0); ALBUMIN/GLOBULIN RATIO 0.8 (1.1-1.5); ALKALINE PHOSPHATASE 134 IU/L (46-116); ANION GAP 13 (8-16); ASPARTATE AMINO TRANSFERASE 26 U/L (10-37); BILIRUBIN,TOTAL 0.3 MG/DL (0.1-1.0); BLOOD UREA NITROGEN 48 MG/DL (7-18); BUN/CREATININE RATIO 30.4 (10.0-20.0); CALCIUM 9.3 MG/DL (8.5-10.1); CHLORIDE 105 MMOL/L (99-107); CREATININE 1.58 MG/DL (0.60-1.10); GLUCOSE 107 MG/DL (70-104); POTASSIUM 3.7 MMOL/L (3.5-5.1); SODIUM 135 MMOL/L (135-145); TOTAL CARBON DIOXIDE 16.7 MMOL/L (24-32); TOTAL PROTEIN 7.2 G/DL (6.4-8.2); eCRCL 43 ML/MIN; eGFR 44 ML/MIN
[2023-11-03 21:19] LABS: BASOPHILS % (AUTO) 0.4 % (0-1); EOSINOPHILS # (AUTO) 0.1 X10'3 (0-0.9); EOSINOPHILS % (AUTO) 0.8 % (0-6); HEMATOCRIT 40.8 % (42.0-52.0); HEMOGLOBIN 13.4 g/dl (14.0-17.9); LYMPHOCYTES # (AUTO) 2.2 X10'3 (1.1-4.8); LYMPHOCYTES % (AUTO) 20.4 % (21-51); MEAN CORPUSCULAR HEMOGLOBIN 31.6 PG (27.0-31.0); MEAN CORPUSCULAR HGB CONC 32.9 g/dL (33.0-36.5); MEAN CORPUSCULAR VOLUME 96.2 FL (78-98); MEAN PLATELET VOLUME 7.1 FL (7.4-10.4); MONOCYTES # (AUTO) 0.8 X10'3 (0-0.9); MONOCYTES % (AUTO) 7.6 % (2-12); NEUTROPHILS # (AUTO) 7.5 X10'3 (1.8-7.7); NEUTROPHILS % (AUTO) 70.8 % (42-75); PLATELET COUNT 434 X10'3 (140-440); RED BLOOD COUNT 4.24 X10'6 (4.70-6.10); RED CELL DISTRIBUTION WIDTH 16.1 % (11.5-14.5); WHITE BLOOD COUNT 10.7 X10'3 (4.5-11.0)
[2023-11-03 21:49] LABS: LIPASE > 375 U/L (16-77)
[2023-11-04] MEDS ORDERED: HYDROmorphone 1 mg/ml syringe IV ONE ×3 (04:35→14:35)
[2023-11-04] MEDS ORDERED: normal saline 1000ml 1,000 ML IV ONE (04:35)
[2023-11-04] MEDS ORDERED: ondansetron/PF 4mg/2ml inj IV ONE ×3 (04:35→14:35)
[2023-11-04] MEDS ORDERED: iohexol 300mg/ml 100ml inj. ONE (04:37)
[2023-11-04] MEDS ORDERED: normal saline 1000ml 1,000 ML IV STA (16:41)
[2023-11-04] MEDS: HYDROmorphone 1 mg/ml syringe IV PRN (19:30)
[2023-11-04] MEDS ORDERED: dextrose 5%-1/4 normal saline 1,000 ML IV SCH (19:35)
[2023-11-04] MEDS: dextrose 5%-1/2 normal saline 1,000 ML IV SCH (20:22)
[2023-11-05] MEDS: HYDROmorphone 1 mg/ml syringe IV PRN ×3 (01:02→09:13)
[2023-11-05] MEDS: dextrose 5%-1/2 normal saline 1,000 ML IV SCH (05:51)
[2023-11-05 09:42] VITALS: BP 107/68; PULSE 86; RESP 16; O2SAT 99
== END 2023-11-05 09:46 | disposition admitted as inpatient to this hospital (09) ==
LOC: ER 20:06
DX: K86.1 Other chronic pancreatitis (principal); Z90.49 Acquired absence of other specified parts of digestive tract
CPT/HCPCS: 36415; 80053; 82948; 83690; 84484; 85025; 93005; 96361; 96374; 96375; 96376; 99285; A6258; J1170; J2405; J7030; Q9967

== ENCOUNTER 2024-04-13 12:22 | Emergency (ER) | payer MEDICARE, OTHER ==
[~2024-04-13] VITALS: Ht 182.9 cm; Wt 63.9 kg
[2024-04-13] MEDS ORDERED: ketorolac trometh. 30mg/ml inj. IM ONE (14:00)
[2024-04-13] MEDS: dexamethasone sod phosphate 10mg/ml inj IM STA (14:05)
[2024-04-13] MEDS: ketorolac tromethamine 15mg/ml inj. IM ONE (14:06)
[2024-04-13 14:32] VITALS: BP 105/70; PULSE 78; RESP 15; TEMP 98.3; O2SAT 98
== END 2024-04-13 14:35 | disposition home or self-care (01) ==
LOC: ER 12:23
DX: S20.211A Contusion of right front wall of thorax, initial encounter (principal); F10.90 Alcohol use, unspecified, uncomplicated; Z79.899 Other long term (current) drug therapy; Z85.9 Personal history of malignant neoplasm, unspecified; Z90.49 Acquired absence of other specified parts of digestive tract; Z98.890 Other specified postprocedural states; X58.XXXA Exposure to other specified factors, initial encounter; Y93.89 Activity, other specified; Y92.89 Other specified places as the place of occurrence of the external cause; Y99.8 Other external cause status
CPT/HCPCS: 71046; 93005; 96372; 99284; J1100; J1885